=== PATIENT | female | born 1995 | race Two or more races ===

== ENCOUNTER → 2020-03-08 | Outpatient (CLI) | payer OTHER | END | disposition home or self-care (01) | LOC: LAB 12:06 | DX: Z20.9 Contact with and (suspected) exposure to unspecified communicable disease (principal) | CPT/HCPCS: 36415; 86706; 86735; 86762; 86765; 86787 ==

== ENCOUNTER → 2020-04-27 | Outpatient (CLI) | payer OTHER | END | disposition home or self-care (01) | LOC: LAB 12:56 | PROVIDERS: ATTEND Nurse Practitioner Family | DX: Z20.9 Contact with and (suspected) exposure to unspecified communicable disease (principal) | CPT/HCPCS: 86735 ==

== ENCOUNTER → 2020-11-08 | Outpatient (CLI) | payer OTHER | END | disposition home or self-care (01) | LOC: LAB 14:10 | PROVIDERS: ATTEND Nurse Practitioner Family | DX: Z20.9 Contact with and (suspected) exposure to unspecified communicable disease (principal) | CPT/HCPCS: 36415; 86706 ==

== ENCOUNTER 2023-09-27 17:59 | Emergency (ER) | payer BC, OTHER ==
[~2023-09-27] VITALS: Ht 162.6 cm; Wt 95.5 kg
[2023-09-27] MEDS ORDERED: AUG875T PO (19:43)
[2023-09-27 19:45] VITALS: BP 133/92; PULSE 85; RESP 18; TEMP 99.5; O2SAT 97
== END 2023-09-27 20:19 | disposition home or self-care (01) ==
LOC: ER 17:59
DX: S61.532A Puncture wound without foreign body of left wrist, initial encounter (principal); Z88.2 Allergy status to sulfonamides; Z88.6 Allergy status to analgesic agent; W55.03XA Scratched by cat, initial encounter; Y93.89 Activity, other specified; Y92.89 Other specified places as the place of occurrence of the external cause; Y99.8 Other external cause status

== ENCOUNTER → 2024-01-04 | Outpatient (CLI) | payer BC ==
[~2024-01-04] MED LIST: AUG875T PO
== END | disposition home or self-care (01) ==
LOC: LAB 11:29
PROVIDERS: ATTEND Obstetrics & Gynecology
DX: Z01.419 Encounter for gynecological examination (general) (routine) without abnormal findings (principal)
CPT/HCPCS: 36415; 82565; 84520

== ENCOUNTER → 2024-01-21 | Outpatient (CLI) | payer BC ==
[2024-01-21 13:14] LABS: Beta HCG, Quantitative 0.6 mIU/mL (1.5-4.2)
[2024-01-22 12:06] LABS: AFP Serum Tumor Marker 1.9 ng/mL (0.0-4.7)
== END | disposition home or self-care (01) ==
LOC: LAB 12:09
PROVIDERS: ATTEND Obstetrics & Gynecology
DX: R97.8 Other abnormal tumor markers (principal)
CPT/HCPCS: 36415; 82105; 82670; 83615; 84702; 86301; 86304

== ENCOUNTER → 2024-08-09 | Outpatient (CLI) | payer BC ==
[2024-08-09 12:55] LABS: % Iron Saturation 6.9 % (15-50)
[2024-08-09 12:56] LABS: Basophils # (auto) 0 10 ^3/uL (0-0.2); Basophils % (auto) 0.3 % (0.0-2.0); Eosinophils # (auto) 0.1 10 ^3/uL (0-0.8); Eosinophils % (auto) 0.9 % (0.0-7.0); Hematocrit 35.4 % (36.0-46.0); Hemoglobin 11.3 g/dL (12.2-16.2); Lymphocytes # (auto) 1.9 10 ^3/uL (0.4-5.4); Lymphocytes % (auto) 17.4 % (10.0-50.0); Mean Corpuscular Hemoglobin 21.4 pg (28.0-32.0); Mean Corpuscular Hgb Conc. 31.8 g/dL (32.0-36.0); Mean Corpuscular Volume 67.2 fL (80.0-100.0); Monocytes # (auto) 0.7 10 ^3/uL (0-1.3); Monocytes % (auto) 6.7 % (0.0-12.0); Neutrophils # (auto) 8.1 10 ^3/uL (1.6-8.6); Neutrophils % (auto) 74.7 % (37.0-80.0); Nucleated Red Blood Cells % 0.3 %; Platelet Count (auto) 308 10^3/uL (140-450); Red Blood Cells 5.27 10^6/uL (4.0-5.20); Red Cell Distribution Width 18.6 % (11.8-14.3); White Blood Cell 10.9 10^3/uL (4.4-10.8)
[2024-08-09 14:04] LABS: Free T4 (Free Thyroxine) 1.34 ng/dL (0.89-1.76); T3 Total 1.69 ng/mL (0.60-1.81)
[2024-08-09 14:05] LABS: Ferritin 5.6 ng/mL (10-291)
[2024-08-09 14:07] LABS: Folate (Folic Acid) 16.15 ng/mL (>5.38)
[2024-08-10 09:07] LABS: Thyroid Peroxidase (TPO) Ab 11 IU/mL (0-34)
== END | disposition home or self-care (01) ==
LOC: LAB 12:11
PROVIDERS: ATTEND Nurse Practitioner Women's Health
DX: E28.2 Polycystic ovarian syndrome (principal); Z01.419 Encounter for gynecological examination (general) (routine) without abnormal findings
CPT/HCPCS: 36415; 82306; 82310; 82607; 82728; 82746; 83540; 83550; 84439; 84443; 84480; 85025; 86376; 86800

== ENCOUNTER 2025-01-10 14:22 | Emergency (ER) | payer BC ==
[~2025-01-10] VITALS: Ht 165.1 cm; Wt 96.6 kg
[2025-01-10 14:24] VITALS: BP 179/108; RESP 18; TEMP 97.8; O2SAT 100
[2025-01-10 14:43] VITALS: PULSE 102
--- NOTE | 2025-01-10 14:43 | ED.PDOC ---
HPI (NEURO) HPI Comments 29 y/o F, presents to the ED for CC of dizziness. Patient reports, she was eating lunch when she began to experience sudden vertigo with associated short- term vision loss lasting only minutes. Patient relays, that she is currently on her menstrual period and was told to have slight anemia during her cycle; endorses cycle flow to be heavy at this time. Patient further comments, to have had previous syncopal episodes in the past with most recent being 06/06/24. Patient denies nausea, vomiting, chills, or weakness. No other symptoms or modifying factors are present at this time. Chief Complaint: Dizziness Time Seen by MD: 14:30 Reviewed Notes: Nurses Notes, Medications, Allergies Information Source: Patient Mode of Arrival: Ambulatory Severity: Moderate Dizziness/Weakness Severity: Unable to do activities Timing: Minutes Duration: Minutes Prehospital treatment: None Headache Location: Generalized Onset: At rest Circumstances: Spontaneous Symptoms: Vertigo During: Awake After: Normal Mentation History of: None Associated Signs and Symptoms: Headache Past Medical History PAST MEDICAL HISTORY: Denies Surgical History: Tonsillectomy CAR FRAMER History: No Pertinent CAR FRAMER History Family History Family History: Unknown Social History Smoker: Non-Smoker Alcohol: Denies ETOH Use Drugs: Denies Drug Use Lives In: Home Constitutional: denies: chills, diaphoresis, fatigue, fever, malaise, sweats, weakness, others EENTM: reports: others (SHORT TERM VISION LOSS); denies: blurred vision, double vision, ear bleeding, ear discharge, ear drainage, ear pain, ear ringing, eye pain, eye redness, hearing loss, mouth pain, mouth swelling, nasal discharge, nose bleeding, nose congestion, nose pain, photophobia, tearing, throat pain, throat swelling, voice changes Respiratory: denies: cough, hemoptysis, orthopnea, SOB at rest, shortness of breath, SOB with excertion, stridor, wheezing, others Cardiovascular: denies: chest pain, dizzy spells, diaphoresis, Dyspnea on exertion, edema, irregular heart beat, left arm pain, lightheadedness, palp itations, PND, syncope, others Gastrointestinal: denies: abdomen distended, abdominal pain, blood streaked bowels, constipated, diarrhea, dysphagia, difficulty swallowing, hematemesis, melena, nausea, poor appetite, poor fluid intake, rectal bleeding, rectal pain, vomiting, others Genitourinary: denies: abnormal vagina bleeding, burning, dyspareunia, dysuria, flank pain, frequency, hematuria, incontinence, pain, , vagina discharge, urgency, others Neurological: reports: dizziness, headache; denies: fainting, left sided numbness, left sided weakness, numbness, paresthesia, pre-existing deficit, right sided numbness, right sided weakness, seizure, speech problems, tingling, tremors, weakness, others Musculoskeletal: denies: back pain, gout, joint pain, joint swelling, muscle pain, muscle stiffness, neck pain, others Integumetry: denies: bruises, change in color, change in hair/nails, dryness, laceration, lesions, lumps, rash, wounds, others Allergic/Immunocompromised: denies: Difficulty Healing, Frequent Infections, Hives, Itching, others Hematologic/Lymphatic: denies: anemia, blood clots, easy bleeding, easy bruising, swollen glands, others Endocrine: denies: excessive hunger, excessive sweating, excessive thirst, excessive urination, flushing, intolerance to cold, intolerance to heat, unex plained weight gain, unexplained weight loss, others Psychiatric: denies: anxiety, bipolar disorder, depression, hopeless, panic disorder, schizophrenia, sleepless, suicidal, others All Other Systems: Reviewed and Negative Physical Exam General Appearance: No Apparent Distress HEENT: Normal ENT Inspection, Pharynx Normal, TMs Normal Neck: Full Range of Motion, Non-Tender, Normal, Normal Inspection Respiratory: Chest Non-Tender, Lungs Clear, No Accessory Muscle Use, No Respiratory Distress, Normal Breath Sounds Cardiovascular: No Edema, No JVD, No Murmur, No Gallop, Normal Peripheral Pulses, Regular Rate/Rhythm Breast Exam: Deferred Gastrointestinal: No Organomegaly, Non Tender, No Pulsatile Mass, Normal Bowel Sounds, Soft Genitalia: Deferred Pelvic: Deferred Rectal: Deferred Extremities: No calf tenderness, Normal capillary refill, Normal inspection, Normal range of motion, Non-tender, No pedal edema Musculoskeletal : Apperance: Normal Neurologic: Alert, commissioner conservation of resources II-XII nml as Tested, No Motor Deficits, Normal Affect, Normal Mood, No Sensory Deficits Cerebellar Function: Normal Reflexes: Normal Skin: Dry, Normal Color, Warm Lymphatic: No Adenopathy EKG EKG : Pulse Rate (adult): 102 [place]: Normal Cardiac Rhythm: ST Block: None Hypertrophy: None ST: Normal Was a procedure done? Was a procedure done?: No Differential Diagnosis (SZ) Seizure: N/A General Weakness: Anemia, Dehydration, Hypotension X-Ray, Labs, Meds, VS Vital Signs Date Time Temp Pulse Resp B/P (MAP) Pulse Ox O2 Delivery O2 Flow Rate FiO2 01/10/25 16:08 Room Air* 0 21 01/10/25 14:43 102 01/10/25 14:37 102 01/10/25 14:24 97.8 110 18 179/108 100 97.8 Lab Test 01/10/25 14:49 01/10/25 14:31 Range/Units White Blood Count 10.5 4.4-10.8 10^3/uL Red Blood Count 5.34 H 4.0-5.20 10^6/uL Hemoglobin 11.3 L 12.2-16.2 g/dL Hematocrit 35.9 L 36.0-46.0 % Mean Corpuscular Volume 67.3 L 80.0-100.0 fL Mean Corpuscular Hemoglobin 21.1 L 28.0-32.0 pg Mean Corpuscular Hemoglobin Concent 31.4 L 32.0-36.0 g/dL Red Cell Distribution Width 18.0 H 11.8-14.3 % Platelet Count 353 140-450 10^3/uL Mean Platelet Volume 8.0 6.9-10.8 fL Neutrophils (%) (Auto) 61.6 37.0-80.0 % Lymphocytes (%) (Auto) 29.9 10.0-50.0 % Monocytes (%) (Auto) 6.2 0.0-12.0 % Eosinophils (%) (Auto) 1.8 0.0-7.0 % Basophils (%) (Auto) 0.5 0.0-2.0 % Neutrophils # (Auto) 6.5 1.6-8.6 10 ^3/uL Lymphocytes # (Auto) 3.1 0.4-5.4 10 ^3/uL Monocytes # (Auto) 0.7 0-1.3 10 ^3/uL Eosinophils # (Auto) 0.2 0-0.8 10 ^3/uL Basophils # (Auto) 0.1 0-0.2 10 ^3/uL Nucleated Red Blood Cells 0.0 % Platelet Estimate Adequate Hypochromasia (manual) Slight Microcytosis Moderate Stomatocytes Few Sodium Level 142 136-145 mmol/L Potassium Level 3.5 3.5-5.1 mmol/L Chloride Level 104 98-107 mmol/L Carbon Dioxide Level 27 20-31 mmol/L Anion Gap 11 5-15 Blood Urea Nitrogen 11 9-23 mg/dL Creatinine 0.99 0.550-1.02 mg/dL Glomerular Filtration Rate Calc 79 >90 mL/min BUN/Creatinine Ratio 11.1 10.0-20.0 Serum Glucose 100 74-106 mg/dL Calcium Level 9.3 8.7-10.4 mg/dL POC Glucose 105 70-106 mg/dl HEAD CT: IMPRESSION: No acute intracranial abnormality is seen. Small bilateral mastoid effusions The patient's CBC shows anemia with a hemoglobin of 11.3 and hematocrit of 35.9 The chemistry panel is within normal limits The patient is being discharged The patient will follow up with the primary care doctor the patient will return to the emergency department's condition worsens. Images Reviewed?: Images reviewed and evaluated by me Time of 1ST Reevaluation: 15:00 Reevaluation 1ST: Unchanged Time of 2ND Reevaluation: 16:14 Reevaluation 2ND: Improved Patient Education/Counseling: Diagnosis, Treatment, Prognosis, Need For Follow Up Family Education/Counseling: No Family Present Departure 1 Departure Time of Disposition: 16:14 Impression: Primary Impression: Near syncope Disposition: 01 HOME / SELF CARE / HOMELESS Condition: Fair Discharged With: Self Critical Care Note Critical Care Time?: No Stability Stability form required: No Heart Score Heart Score: Heart Score Response (Comments) Value History N/A 0 EKG N/A 0 Age N/A 0 Risk Factors N/A 0 Troponin N/A 0 Total 0 I personally scribed for CAMILLA ESCOBAR MD ([email or web address]) on 01/10/25 at 14:43. Electronically submitted by Evita Trejo ([email or web address]). I personally scribed for CAMILLA ESCOBAR MD ([email or web address]) on 01/10/25 at 15:46. Electronically submitted by Evita Trejo ([email or web address]). CAMILLA ESCOBAR MD Jan 10, 2025 14:43
[2025-01-10 15:09] LABS: Hematocrit 35.9 % (36.0-46.0); Hemoglobin 11.3 g/dL (12.2-16.2); Mean Corpuscular Hemoglobin 21.1 pg (28.0-32.0); Mean Corpuscular Volume 67.3 fL (80.0-100.0); Nucleated Red Blood Cells % 0.0 %
--- NOTE | 2025-01-10 15:14 | DVH ---
CLINICAL HISTORY: dizziness TECHNIQUE: Helical scanning was performed of the head from the skull base to the vertex. Multiplanar reconstructions were performed. This exam was performed according to our departmental dose optimizat ion program. Up-to-date CT equipment and radiation dose reduction techniques are utilized as appropri ate. CTDI 61 DLP 1201 COMPARISON: None FINDINGS: There is no evidence for acute intracranial hemorrhage, acute ischemic changes, mass, mass effect, or extra-axial fluid collection. There is no hydrocephalus or midline shift. There is no effacement of the cerebral sulci and basal subarachnoid cisterns. The quiñonez-white matter differentiation is well martha ntained. The imaged paranasal sinuses demonstrate a right maxillary sinus retention cyst. There are small clive ateral mastoid effusions. IMPRESSION: No acute intracranial abnormality is seen. Small bilateral mastoid effusions
[2025-01-10 15:16] LABS: Chloride 104 mmol/L (98-107); Sodium 142 mmol/L (136-145)
[2025-01-10 15:17] LABS: Anion Gap 11 (5-15); Calcium 9.3 mg/dL (8.7-10.4); Carbon Dioxide 27 mmol/L (20-31)
[2025-01-10 15:18] LABS: Potassium 3.5 mmol/L (3.5-5.1)
[2025-01-10 15:22] LABS: BUN/Creatinine Ratio 11.1 (10.0-20.0); Blood Urea Nitrogen 11 mg/dL (9-23); Glucose 100 mg/dL (74-106)
[2025-01-10 15:24] LABS: Stomatocytes Few
[2025-01-10 16:42] LABS: Urine Protein, UAD Negative (Negative)
--- NOTE | 2025-01-16 14:07 | ECG ---
[facility] Test Date: 2025-01-10 Test Time: 14:37:33 Pat Name: MILA BURNS Department: ED Room: Gender: F [employer]: GP : [id number] Requested By: CAMILLA ESCOBAR Order Number: [id number] Reading MD: Ranulfo Phillips Measurements Intervals [place] Rate: 102 P: 67 NE: 164 QRS: 42 QRSD: 85 T: 49 QT: 357 QTc: 466 Interpretive Statements Sinus tachycardia Electronically Signed On 01-16-2025 14:10:57 PDT by Ranulfo Phillips Please click the below link to view image of tracing.
== END 2025-01-10 16:25 | disposition home or self-care (01) ==
LOC: ER 14:25
DX: R55 Syncope and collapse (principal); Z90.89 Acquired absence of other organs
CPT/HCPCS: 36415; 70450; 80048; 81001; 82962; 85025; 93005

== ENCOUNTER → 2025-01-12 | Outpatient (CLI) | payer BC ==
[2025-01-12 11:28] LABS: Mean Corpuscular Hemoglobin 21.3 pg (28.0-32.0); Mean Corpuscular Volume 67.6 fL (80.0-100.0); Nucleated Red Blood Cells % 0.0 %
[2025-01-12 11:30] LABS: Hematocrit 37.3 % (36.0-46.0); Hemoglobin 11.8 g/dL (12.2-16.2)
[2025-01-12 11:57] LABS: Follicle Stimulating Hormone 5.78 IU/L (SEE BELOW)
== END | disposition home or self-care (01) ==
LOC: LAB 10:40
PROVIDERS: ATTEND Obstetrics & Gynecology
DX: N93.9 Abnormal uterine and vaginal bleeding, unspecified (principal); D49.59 Neoplasm of unspecified behavior of other genitourinary organ; R19.00 Intra-abdominal and pelvic swelling, mass and lump, unspecified site; R97.1 Elevated cancer antigen 125 [CA 125]
CPT/HCPCS: 36415; 82670; 83001; 83002; 84403; 84443; 85025; 86304

== ENCOUNTER 2025-01-18 09:24 | Outpatient (CLI) | payer BC ==
[2025-01-18 10:27] LABS: Albumin 4.2 g/dL (3.2-4.8); Alkaline Phosphatase 106 U/L (46-116); Anion Gap 9 (5-15); BUN/Creatinine Ratio 7.8 (10.0-20.0); Bilirubin, Total 0.5 mg/dL (0.2-1.0); Calcium 8.9 mg/dL (8.7-10.4); Carbon Dioxide 27 mmol/L (20-31); Chloride 105 mmol/L (98-107); Creatine Kinase IFCC 59 U/L (34-145); Potassium 3.8 mmol/L (3.5-5.1); Sodium 141 mmol/L (136-145); Total Protein 7.5 g/dL (5.7-8.2)
[2025-01-18 10:31] LABS: Alanine Aminotransferase 45 U/L (7-40); Blood Urea Nitrogen 6 mg/dL (9-23); Glucose 108 mg/dL (74-106)
== END 2025-01-18 17:00 | disposition home or self-care (01) ==
LOC: LAB 09:24
PROVIDERS: ATTEND Obstetrics & Gynecology
DX: D27.9 Benign neoplasm of unspecified ovary (principal); R10.20 Pelvic and perineal pain unspecified side
CPT/HCPCS: 36415; 80053; 82550

== ENCOUNTER 2025-02-02 09:06 | Outpatient (CLI) | payer BC ==
[2025-02-02 10:10] LABS: Iron 24.0 ug/dL (50-170)
[2025-02-02 10:13] LABS: Total Iron Binding Capacity 424.0 ug/dL (250-425)
[2025-02-03 11:26] LABS: Hepatitis B Surface Antigen Negative (Negative)
[2025-02-03 11:54] LABS: Hepatitis C Antibody Negative (Negative)
== END 2025-02-02 17:00 | disposition home or self-care (01) ==
LOC: LAB 09:06
PROVIDERS: ATTEND Internal Medicine
DX: E55.9 Vitamin D deficiency, unspecified (principal); R79.89 Other specified abnormal findings of blood chemistry
CPT/HCPCS: 36415; 80074; 82306; 82728; 83540; 83550; 85652; 86038

== ENCOUNTER 2025-03-14 09:56 | Outpatient (CLI) | payer BC ==
[2025-03-14 10:22] LABS: Hematocrit 38.0 % (36.0-46.0); Hemoglobin 12.0 g/dL (12.2-16.2); Mean Corpuscular Hemoglobin 21.9 pg (28.0-32.0); Mean Corpuscular Volume 69.1 fL (80.0-100.0); Nucleated Red Blood Cells % 0.2 %
[2025-03-14 11:08] LABS: Alanine Aminotransferase 47.0 U/L (7-40); Albumin 4.3 g/dL (3.2-4.8); Alkaline Phosphatase 105.0 U/L (46-116); Bilirubin, Direct 0.2 mg/dL (<0.3); Bilirubin, Total 0.6 mg/dL (0.2-1.0); Total Protein 7.7 g/dL (5.7-8.2)
== END 2025-03-14 17:00 | disposition home or self-care (01) ==
LOC: LAB 09:56
PROVIDERS: ATTEND Obstetrics & Gynecology
DX: E55.9 Vitamin D deficiency, unspecified (principal); N80.9 Endometriosis, unspecified; D25.9 Leiomyoma of uterus, unspecified; E66.9 Obesity, unspecified
CPT/HCPCS: 36415; 80076; 82306; 83036; 85025; 86304